=== PATIENT | male | born 1990 | race Caucasian/White ===

== ENCOUNTER 2016-08-15 21:09 | Emergency (ER) | payer SELFPAY ==
[2016-08-15 21:19] VITALS: BP 121/100
[2016-08-15] MEDS ORDERED: IBUPROFEN 800 MG TABLET PO ONE (21:20)
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
== END 2016-08-15 22:45 | disposition left against medical advice (07) ==
LOC: ER 21:09
DX: S99.922A Unspecified injury of left foot, initial encounter (principal); W20.8XXA Other cause of strike by thrown, projected or falling object, initial encounter
CPT/HCPCS: 99281

== ENCOUNTER 2016-08-16 08:42 | Emergency (ER) | payer SELFPAY ==
[2016-08-16 08:49] VITALS: BP 111/67
[2016-08-16] MEDS ORDERED: IBUPROFEN 800 MG TABLET PO ONE (09:23)
[2016-08-16] MEDS ORDERED: ACETAMINOPHEN 325 MG TABLET PO ONE (09:23)
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
== END 2016-08-16 09:45 | disposition home or self-care (01) ==
LOC: ER 08:42
PROC: 2W3TX1Z Immobilization of Left Foot using Splint (ICD-10-PCS; principal; 2016-08-16)
DX: S92.312A Displaced fracture of first metatarsal bone, left foot, initial encounter for closed fracture (principal); S92.322A Displaced fracture of second metatarsal bone, left foot, initial encounter for closed fracture; W22.8XXA Striking against or struck by other objects, initial encounter; F17.210 Nicotine dependence, cigarettes, uncomplicated
CPT/HCPCS: 99283